=== PATIENT | male | born 1990 | race Caucasian/White ===

== ENCOUNTER 2023-03-24 16:31 | Emergency (ER) | payer SELFPAY ==
[~2023-03-24] VITALS: Ht 188 cm; Wt 115.7 kg
[2023-03-24] MEDS ORDERED: KETOROLAC TROMETHAMINE 30 MG INJ ONE (17:29)
[2023-03-24] MEDS ORDERED: KETOROLAC TROMETHAMINE 30 MG INJ IM ONE (17:30)
[2023-03-24] MEDS ORDERED: NAPR-1164 PO (17:46)
[2023-03-24 18:18] VITALS: BP 124/75; TEMP 97.6; O2SAT 97
== END 2023-03-24 18:20 | disposition home or self-care (01) ==
LOC: ER 16:33
DX: M79.605 Pain in left leg (principal); M79.642 Pain in left hand; Z79.899 Other long term (current) drug therapy
CPT/HCPCS: 99284; 73130; 73590; 96372; J1885; A4663